=== PATIENT | male | born 2000 | race Two or more races ===

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

== ENCOUNTER 2023-11-24 20:17 | Emergency (ER) | payer BC ==
[~2023-11-24] VITALS: Ht 165.1 cm; Wt 75.5 kg
[2023-11-24 21:27] LABS: Basophils # (auto) 0.1 10 ^3/uL (0-0.2); Basophils % (auto) 0.6 % (0.0-2.0); Eosinophils # (auto) 0.4 10 ^3/uL (0-0.8); Eosinophils % (auto) 3.3 % (0.0-7.0); Hematocrit 39.2 % (41.0-53.0); Hemoglobin 13.3 g/dL (13.5-17.5); Lymphocytes # (auto) 3.3 10 ^3/uL (0.4-5.4); Lymphocytes % (auto) 29.3 % (10.0-50.0); Mean Corpuscular Hemoglobin 29.1 pg (28.0-32.0); Mean Corpuscular Volume 85.6 fL (80.0-100.0); Monocytes % (auto) 8.5 % (0.0-12.0); Neutrophils # (auto) 6.6 10 ^3/uL (1.6-8.6); Neutrophils % (auto) 58.3 % (37.0-80.0); Red Blood Cells 4.58 10^6/uL (4.5-5.90); Red Cell Distribution Width 12.5 % (11.8-14.3); White Blood Cell 11.3 10^3/uL (4.4-10.8)
[2023-11-24 21:42] LABS: Alanine Aminotransferase 52 U/L (7-40); Albumin 4.8 g/dL (3.2-4.8); Alkaline Phosphatase 105 U/L (46-116); Anion Gap 10 (5-15); Aspartate Aminotransferase 29 U/L (13-40); BUN/Creatinine Ratio 15.5 (10.0-20.0); Blood Urea Nitrogen 15 mg/dL (9-23); Calcium 10.1 mg/dL (8.5-10.1); Carbon Dioxide 27 mmol/L (20-30); Chloride 102 mmol/L (98-107); Glucose 117 mg/dL (74-106); Potassium 3.4 mmol/L (3.5-5.1); Sodium 139 mmol/L (136-145)
[2023-11-24 21:43] LABS: Urine Bacteria None Seen /hpf (None Seen); Urine WBC None Seen /hpf (0 - 3)
[2023-11-24 21:43] LABS: Bilirubin, Total 0.3 mg/dL (0.2-1.0); Total Protein 8.3 g/dL (5.7-8.2)
[2023-11-24 22:02] LABS: Urine Blood 2+ /uL (Negative); Urine Clarity Clear (Clear); Urine Color Yellow (Yellow); Urine Protein, UAD TRACE (Negative); Urine Specific Gravity 1.025 (1.001-1.035); Urine Urobilinogen 2 mg/dL (Negative); Urine pH 5.5 (5.0-9.0)
[2023-11-24] MEDS ORDERED: DOXY1CAP57 PO (23:07)
[2023-11-24] MEDS ORDERED: HYDR-4902 PO (23:07)
[2023-11-24] MEDS ORDERED: ZOFR4T PO (23:07)
[2023-11-25] MEDS: AZITHROMYCIN 250 MG TAB PO ONE (01:25)
[2023-11-25] MEDS: HYDROcodone-ACET 5/325MG TAB PO ONE (01:26)
[2023-11-25] MEDS: ONDANSETRON ODT 4 MG TAB PO ONE (01:27)
[2023-11-25] MEDS: cefTRIAXone SOD 1,000 MG VL IM ONE (01:27)
[2023-11-25 01:40] VITALS: BP 132/82; PULSE 80; RESP 20; TEMP 98.6; O2SAT 99
[2023-11-25 13:43] LABS: Lipase 63 U/L (12-53)
== END 2023-11-25 01:42 | disposition home or self-care (01) ==
LOC: ER 20:17
DX: N28.86 Ureteritis cystica (principal); R10.31 Right lower quadrant pain; R10.32 Left lower quadrant pain; Z11.3 Encounter for screening for infections with a predominantly sexual mode of transmission
CPT/HCPCS: 36415; 74176; 80053; 81001; 83690; 85025; 86256; 96372; 99285; J0696; Q0162